=== PATIENT | female | born 1980 | race Caucasian/White ===

== ENCOUNTER 2018-06-02 21:01 | Inpatient (IN) | payer OTHER ==
[~2018-06-02] VITALS: Ht 177.8 cm; Wt 69.3 kg
[2018-06-02] MEDS ORDERED: IPRATROPIUM BROM 0.5 MG/2.5ML INH SOL NEB ONE (21:45)
[2018-06-02] MEDS ORDERED: ALBUTEROL SULF 2.5 MG/0.5ML(0.5%) NEB SOLN NEB ONE (21:45)
[2018-06-02 21:50] LABS: Basophils # (auto) 0 uL; Eosinophils # (auto) 0.2 uL; Eosinophils % (auto) 2.9 % (0.0-7.0); Lymphocytes # (auto) 1.7 uL; Mean Corpuscular Hgb Conc. 31.6 g/dL (32.0-36.0); Monocytes # (auto) 0.5 uL; Red Blood Cells 2.73 10^6/uL (4.0-5.20)
[2018-06-02 21:52] LABS: Basophils % (auto) 0.5 % (0.0-2.0); Hematocrit 24.4 % (36.0-46.0); Hemoglobin 7.7 g/dL (12.2-16.2); Lymphocytes % (auto) 21.4 % (10.0-50.0); Mean Corpuscular Hemoglobin 28.3 pg (28.0-32.0); Mean Corpuscular Volume 89.6 fL (80.0-100.0); Neutrophils # (auto) 5.6 uL; Neutrophils % (auto) 69.2 % (37.0-80.0); Nucleated Red Blood Cells % 0.1 %; Platelet Count (auto) 200 10^3/uL (140-450); White Blood Cell 8.1 10^3/uL (4.4-10.8)
[2018-06-02 22:06] LABS: Albumin 2.3 g/dL (3.4-5.0); BUN/Creatinine Ratio 22.4; Calcium 8.6 mg/dL (8.5-10.1); Potassium 5.4 mmol/L (3.5-5.1)
[2018-06-02 22:08] LABS: Bilirubin, Total 0.5 mg/dL (0.2-1.0); Total Protein 9.9 g/dL (6.4-8.2)
[2018-06-02 22:09] LABS: INR 1.12 (0.9-1.15); Partial Thromboplastin Time 29.2 sec (23.78-33.04); Prothrombin Time 11.9 sec (9.27-12.13)
[2018-06-02 22:12] LABS: Magnesium 2.9 mg/dL (1.6-2.6)
[2018-06-02 22:15] LABS: Urine Bacteria NONE SEEN /hpf (None Seen); Urine Blood 2+ /uL (Negative); Urine Specific Gravity 1.015 (1.001-1.035); Urine WBC 1190 /hpf (0 - 5); Urine WBC Clumps PRESENT /hpf (None Seen)
[2018-06-02 22:23] LABS: Red Cell Distribution Width 22.7 % (11.8-14.3)
[2018-06-02] MEDS ORDERED: SODIUM CHLORIDE 0.9% 1,000 ML IV ONE (23:00)
[2018-06-02] MEDS ORDERED: cefTRIAXone 1GM/10ml IVPUSH 10 ML IV ONE ×2 (23:03→23:30)
[2018-06-02] MEDS ORDERED: NITROGLYCERIN 0.4 MG SL TAB SL PRN (23:30)
[2018-06-02] MEDS ORDERED: MORPHINE SULF INJ 2 MG/ML SYRINGE 1ML IV PRN (23:30)
[2018-06-02] MEDS: SODIUM CHLORIDE 0.9% 1,000 ML IV SCH (23:52)
[2018-06-03 03:33] VITALS: BP 107/89
[2018-06-03] MEDS: SODIUM CHLORIDE 0.9% 1,000 ML IV SCH (07:43)
[2018-06-03 11:11] LABS: Basophils # (auto) 0 uL; Basophils % (auto) 0.6 % (0.0-2.0); Eosinophils # (auto) 0.3 uL; Lymphocytes # (auto) 1.5 uL; Monocytes # (auto) 0.4 uL; Neutrophils # (auto) 3.7 uL; Platelet Count (auto) 168 10^3/uL (140-450); White Blood Cell 5.9 10^3/uL (4.4-10.8)
[2018-06-03 11:13] LABS: Eosinophils % (auto) 4.8 % (0.0-7.0); Hematocrit 21.5 % (36.0-46.0); Lymphocytes % (auto) 25.9 % (10.0-50.0); Mean Corpuscular Hemoglobin 29.3 pg (28.0-32.0); Mean Corpuscular Hgb Conc. 32.4 g/dL (32.0-36.0); Mean Corpuscular Volume 90.6 fL (80.0-100.0); Neutrophils % (auto) 62.7 % (37.0-80.0); Nucleated Red Blood Cells % 0.1 %; Red Blood Cells 2.38 10^6/uL (4.0-5.20)
[2018-06-03 11:26] LABS: Red Cell Distribution Width 22.7 % (11.8-14.3)
[2018-06-03 12:00] VITALS: BP 107/63
[2018-06-03 12:01] LABS: Albumin 2.2 g/dL (3.4-5.0); Bilirubin, Total 0.4 mg/dL (0.2-1.0); Calcium 8.6 mg/dL (8.5-10.1); Potassium 5.3 mmol/L (3.5-5.1); Total Protein 9.2 g/dL (6.4-8.2)
[2018-06-03] MEDS: D5W 5% 1,000 ML IV SCH ×2 (12:01→17:02)
[2018-06-03] MEDS ORDERED: SODIUM POLYSTYRENE SULF 15GM/60ML SUSP GT ONE (12:45)
[2018-06-03 17:00] VITALS: BP 129/80
[2018-06-03 22:00] VITALS: BP 105/63
[2018-06-03] MEDS: cefTRIAXone 1GM/10ml IVPUSH 10 ML IV SCH (22:17)
[2018-06-04] VITALS (9 sets, daily range): BP systolic 97–112; BP diastolic 58–76
[2018-06-04] MEDS: D5W 5% 1,000 ML IV SCH ×4 (00:05→20:05)
[2018-06-04 05:47] LABS: Basophils # (auto) 0 uL; Basophils % (auto) 0.7 % (0.0-2.0); Eosinophils # (auto) 0.4 uL; Hemoglobin 7.5 g/dL (12.2-16.2); Lymphocytes # (auto) 1.5 uL; Monocytes # (auto) 0.4 uL; Monocytes % (auto) 7.1 % (0.0-12.0); Neutrophils # (auto) 3.5 uL
[2018-06-04 05:51] LABS: Eosinophils % (auto) 6.1 % (0.0-7.0); Hematocrit 22.5 % (36.0-46.0); Lymphocytes % (auto) 25.6 % (10.0-50.0); Mean Corpuscular Hemoglobin 29.7 pg (28.0-32.0); Mean Corpuscular Hgb Conc. 33.2 g/dL (32.0-36.0); Mean Corpuscular Volume 89.5 fL (80.0-100.0); Neutrophils % (auto) 60.5 % (37.0-80.0); Platelet Count (auto) 154 10^3/uL (140-450); Red Blood Cells 2.51 10^6/uL (4.0-5.20); White Blood Cell 5.8 10^3/uL (4.4-10.8)
[2018-06-04 05:58] LABS: Red Cell Distribution Width 20.4 % (11.8-14.3)
[2018-06-04 09:03] LABS: BUN/Creatinine Ratio 21.9; Calcium 7.4 mg/dL (8.5-10.1); Potassium 3.9 mmol/L (3.5-5.1)
[2018-06-04] MEDS: Osmolite 1.2 Cal One Liter GT SCH (09:15)
[2018-06-04] MEDS ORDERED: DIPHENOXYLATE W/ATROPINE 2.5 MG TAB GT PRN (11:15)
[2018-06-04 17:36] LABS: BUN/Creatinine Ratio 20.4; Bilirubin, Total 0.4 mg/dL (0.2-1.0); Calcium 7.5 mg/dL (8.5-10.1); Potassium 3.3 mmol/L (3.5-5.1); Total Protein 8.5 g/dL (6.4-8.2)
[2018-06-04] MEDS ORDERED: POTASSIUM EFFERVESENT TAB 25 MEQ GT ONE (18:00)
[2018-06-04] MEDS: cefTRIAXone 1GM/10ml IVPUSH 10 ML IV SCH (23:50)
[2018-06-05] VITALS (9 sets, daily range): BP systolic 96–122; BP diastolic 57–70
[2018-06-05] MEDS: D5W 5% 1,000 ML IV SCH ×3 (02:26→16:05)
[2018-06-05] MEDS: Osmolite 1.2 Cal One Liter GT SCH (04:31)
[2018-06-05 05:20] LABS: Basophils # (auto) 0 uL; Basophils % (auto) 0.6 % (0.0-2.0); Eosinophils # (auto) 0.2 uL; Lymphocytes # (auto) 1.3 uL; Mean Corpuscular Volume 89.6 fL (80.0-100.0); Monocytes # (auto) 0.3 uL; Neutrophils # (auto) 2.2 uL; Nucleated Red Blood Cells % 0.1 %
[2018-06-05 05:23] LABS: Eosinophils % (auto) 5.7 % (0.0-7.0); Hematocrit 20.4 % (36.0-46.0); Lymphocytes % (auto) 32.5 % (10.0-50.0); Mean Corpuscular Hemoglobin 29.7 pg (28.0-32.0); Mean Corpuscular Hgb Conc. 33.2 g/dL (32.0-36.0); Monocytes % (auto) 6.5 % (0.0-12.0); Neutrophils % (auto) 54.7 % (37.0-80.0); Platelet Count (auto) 141 10^3/uL (140-450); Red Blood Cells 2.28 10^6/uL (4.0-5.20)
[2018-06-05 05:28] LABS: Albumin 1.9 g/dL (3.4-5.0); BUN/Creatinine Ratio 19.7; Bilirubin, Total 0.3 mg/dL (0.2-1.0); Calcium 7.2 mg/dL (8.5-10.1); Potassium 3.5 mmol/L (3.5-5.1); Total Protein 7.9 g/dL (6.4-8.2)
[2018-06-05 05:41] LABS: Red Cell Distribution Width 20.9 % (11.8-14.3)
[2018-06-05 05:42] LABS: Hemoglobin 6.8 g/dL (12.2-16.2)
[2018-06-05 10:32] LABS: Hematocrit 21.2 % (36.0-46.0); Mean Corpuscular Hemoglobin 29.3 pg (28.0-32.0); Mean Corpuscular Hgb Conc. 32.8 g/dL (32.0-36.0); Mean Corpuscular Volume 89.4 fL (80.0-100.0); Red Blood Cells 2.37 10^6/uL (4.0-5.20); Red Cell Distribution Width 20.8 % (11.8-14.3); White Blood Cell 4.8 10^3/uL (4.4-10.8)
[2018-06-05] MEDS ORDERED: LIDOCAINE 1% (LOCAL ANESTH.) PF 5ml SDV ID ONE (14:15)
[2018-06-05 18:04] LABS: BUN/Creatinine Ratio 18.7; Calcium 7.7 mg/dL (8.5-10.1)
[2018-06-06] MEDS: cefTRIAXone 1GM/10ml IVPUSH 10 ML IV SCH ×2 (00:02→22:05)
[2018-06-06] MEDS: D5W 5% 1,000 ML IV SCH ×5 (00:03→18:45)
[2018-06-06] MEDS: SODIUM CHLOR 0.9% PF (SALINE LOCK) 10ML VIAL/SYR IV SCH ×3 (00:03→22:05)
[2018-06-06 05:00] VITALS: BP 127/65
[2018-06-06 09:14] VITALS: BP 91/58
[2018-06-06 11:08] LABS: Basophils # (auto) 0 uL; Basophils % (auto) 0.5 % (0.0-2.0); Eosinophils # (auto) 0.3 uL; Eosinophils % (auto) 5.5 % (0.0-7.0); Hematocrit 26.3 % (36.0-46.0); Hemoglobin 8.7 g/dL (12.2-16.2); Lymphocytes # (auto) 1.6 uL; Lymphocytes % (auto) 27.3 % (10.0-50.0); Mean Corpuscular Hemoglobin 29.4 pg (28.0-32.0); Mean Corpuscular Hgb Conc. 33.2 g/dL (32.0-36.0); Mean Corpuscular Volume 88.7 fL (80.0-100.0); Monocytes # (auto) 0.3 uL; Monocytes % (auto) 5.8 % (0.0-12.0); Neutrophils # (auto) 3.5 uL; Neutrophils % (auto) 60.9 % (37.0-80.0); Nucleated Red Blood Cells % 0.1 %; Platelet Count (auto) 144 10^3/uL (140-450); Red Blood Cells 2.97 10^6/uL (4.0-5.20); Red Cell Distribution Width 19.1 % (11.8-14.3); White Blood Cell 5.7 10^3/uL (4.4-10.8)
[2018-06-06 11:28] LABS: Albumin 2.1 g/dL (3.4-5.0); BUN/Creatinine Ratio 17.8; Bilirubin, Total 0.4 mg/dL (0.2-1.0); Calcium 7.9 mg/dL (8.5-10.1); Potassium 4.3 mmol/L (3.5-5.1); Total Protein 9.1 g/dL (6.4-8.2)
[2018-06-06] MEDS: PANTOPRAZOLE 40 MG/10 ML VIAL IV SCH ×2 (11:30→22:04)
[2018-06-06 11:40] LABS: % Iron Saturation 58.1 % (15-50)
[2018-06-06 12:35] VITALS: BP 95/68
[2018-06-06 17:00] VITALS: BP 109/84
[2018-06-06 21:39] VITALS: BP 102/64
[2018-06-07] MEDS: D5W 5% 1,000 ML IV SCH ×2 (01:54→10:23)
[2018-06-07 04:38] VITALS: BP 114/64
[2018-06-07 05:32] LABS: Basophils # (auto) 0 uL; Basophils % (auto) 0.5 % (0.0-2.0); Eosinophils # (auto) 0.3 uL; Eosinophils % (auto) 5.3 % (0.0-7.0); Hematocrit 25.9 % (36.0-46.0); Hemoglobin 8.7 g/dL (12.2-16.2); Lymphocytes # (auto) 1.6 uL; Mean Corpuscular Hemoglobin 30.2 pg (28.0-32.0); Mean Corpuscular Hgb Conc. 33.7 g/dL (32.0-36.0); Mean Corpuscular Volume 89.5 fL (80.0-100.0); Monocytes # (auto) 0.4 uL; Monocytes % (auto) 6.6 % (0.0-12.0); Neutrophils # (auto) 3.1 uL; Neutrophils % (auto) 57.6 % (37.0-80.0); Nucleated Red Blood Cells % 0.1 %; Platelet Count (auto) 131 10^3/uL (140-450); Red Cell Distribution Width 18.9 % (11.8-14.3); White Blood Cell 5.4 10^3/uL (4.4-10.8)
[2018-06-07 05:54] LABS: Albumin 2.1 g/dL (3.4-5.0); BUN/Creatinine Ratio 17.6; Bilirubin, Total 0.3 mg/dL (0.2-1.0); Calcium 7.8 mg/dL (8.5-10.1); Potassium 3.8 mmol/L (3.5-5.1); Total Protein 8.7 g/dL (6.4-8.2)
[2018-06-07 09:00] VITALS: BP 116/75
[2018-06-07] MEDS: SODIUM CHLOR 0.9% PF (SALINE LOCK) 10ML VIAL/SYR IV SCH (10:23)
[2018-06-07] MEDS: PANTOPRAZOLE 40 MG/10 ML VIAL IV SCH (10:24)
== END 2018-06-07 13:20 | disposition home or self-care (01) | DRG 682 ==
LOC: EDBD 21:01 → ER 21:07 → TELE 21:08 → TELE-WESTW 06-03 11:47
PROVIDERS: ADMIT Internal Medicine; ATTEND Internal Medicine
PROC: 30233N1 Transfusion of Nonautologous Red Blood Cells into Peripheral Vein, Percutaneous Approach (ICD-10-PCS; principal; 2018-06-04)
DX: N17.9 Acute kidney failure, unspecified (principal); J18.9 Pneumonia, unspecified organism; N39.0 Urinary tract infection, site not specified; E87.0 Hyperosmolality and hypernatremia; J98.11 Atelectasis; R47.01 Aphasia; N18.4 Chronic kidney disease, stage 4 (severe); D63.8 Anemia in other chronic diseases classified elsewhere; R31.9 Hematuria, unspecified; E86.0 Dehydration; F17.200 Nicotine dependence, unspecified, uncomplicated; Z86.73 Personal history of transient ischemic attack (TIA), and cerebral infarction without residual deficits; Z93.0 Tracheostomy status; Z93.1 Gastrostomy status; Z99.81 Dependence on supplemental oxygen; Z88.8 Allergy status to other drugs, medicaments and biological substances
CPT/HCPCS: 36415; 36569; 51702; 71045; 80048; 80053; 81001; 81025; 83540; 83550; 83735; 84484; 85025; 85027; 85610; 85730; 86850; 86860; 86870; 86880; 86900; 86901; 86905; 86906; 86922; 86970; 86971; 87081; 87086; 87493; 93005; 94640; 94761; 96361; 96374; 99291; A6257; C9113; J0696; J7042